=== PATIENT | male | born 1960 | race Caucasian/White ===

== ENCOUNTER 2016-05-24 19:10 | Emergency (ER) | payer OTHER ==
[~2016-05-24] VITALS: Ht 182.9 cm; Wt 90.9 kg
[~2016-05-24 19:10] MED LIST: AMLODIPINE BESY10 MG PO; ATENOLOL25 M1 NG; ATENOLOL50 MG PO; ATORVASTATIN CA20 MG PO; CLONIDINE HCL0.1 MG PO; DILAUDID2 MG PO; DIOVAN HCT 31 TABLE1 PO; DIOVAN40 MG PO; FLEXERIL10 MG PO; GLUCOPHAGE1000 MG PO; HYDROCODON-ACE1 EAC7 PO; K-DUR20 MEQ PO; LIDODERM 5% P1 PATCH TD; LIPITOR20 MG PO; LIPITOR5 MG PO; LYRICA200 MG PO; METFORMIN HCL1000 MG PO; MOBIC7.5 MG PO; NEURONTIN100 MG PO; NORCO 5/3251 TABLET PO; NORVASC10 MG PO; OMEPRAZOLE20 MG PO; OXYCODONE-ACET1 EACH PO; OXYCONTIN10 MG PO; PAROXETINE HCL40 MG PO; PAXIL40 MG PO; PERCOCET 10/1 TABLET PO; POTASSIUM CHLO20 ME1 PO; PREDNISONE10 MG PO; PREDNISONE20 MG PO; PRILOSEC20 MG PO; SYMBICORT60 INHALAT IH; TENORMIN50 MG PO; TORADOL10 MG PO; VALIUM2 MG PO; VALSARTAN-HCTZ1 EAC3 PO; VICODIN,LORT1 TABLET PO; ZETIA10 MG PO; diovan; prilosec; tenormin
[2016-05-24] MEDS ORDERED: PERCOCET 5/31 TABLET PO (21:01)
[2016-05-24] MEDS ORDERED: FLEXERIL10 MG PO (21:01)
[2016-05-24] MEDS ORDERED: PREDNISONE20 MG PO (21:01)
[2016-05-24 21:25] VITALS: BP 115/73
== END 2016-05-24 21:30 | disposition home or self-care (01) ==
LOC: EME 19:10
DX: M54.2 Cervicalgia (principal); G89.29 Other chronic pain; R51 Headache; E11.9 Type 2 diabetes mellitus without complications; E78.5 Hyperlipidemia, unspecified; I10 Essential (primary) hypertension; K21.9 Gastro-esophageal reflux disease without esophagitis; F17.210 Nicotine dependence, cigarettes, uncomplicated; Z79.84 Long term (current) use of oral hypoglycemic drugs
CPT/HCPCS: 99281; 99284; J1885; J7512

== ENCOUNTER 2016-07-01 15:11 | Observation (INO) | payer OTHER ==
[~2016-07-01] VITALS: Ht 182.9 cm; Wt 86.5 kg
[~2016-07-01 15:11] MED LIST changes: +PERCOCET 5/31 TABLET PO
[2016-07-01 15:58] LABS: BASOPHIL COUNT 0.1 K/uL (0-0.1); EOSINOPHIL (%) 2.6 % (0-5); EOSINOPHIL COUNT 0.3 K/uL (0-0.3); HEMATOCRIT 37.6 % (38.0-50.0); IMMATURE GRANULOCYTE (%) 1.1 % (0.0-0.7); IMMATURE GRANULOCYTE COUNT 0.1 K/uL; LYMPHOCYTE COUNT 5.2 K/uL (1.0-2.8); MCHC 34.8 G/DL (30.0-36.0); MCV 89.1 FL (86-99); MEAN PLAT.VOLUME 9.2 uM^3 (9.0-12.4); MONOCYTE (%) 9.1 % (3-12); MONOCYTE COUNT 1.1 K/uL (0-0.8); NEUTROPHIL (%) 42.5 % (45-76); PLATELET COUNT 341 K/uL (156-360); RBC DIS.WIDTH-CV 12.8 % (11.8-14.6); RBC DIS.WIDTH-SD 41.9 % (39-53); RED BLOOD COUNT 4.22 M/uL (4.00-5.50); WHITE BLOOD COUNT 11.8 K/uL (4.1-10.2)
[2016-07-01 16:10] LABS: CHLORIDE 108 mEq/L (99-109); POTASSIUM 3.1 mEq/L (3.7-5.4); SODIUM 145 mEq/L (136-147)
[2016-07-01 16:11] LABS: GLUCOSE 89 mg/dL (70-99)
[2016-07-01 16:13] LABS: ANION GAP 17 MEQ/L (2-14)
[2016-07-01 16:15] LABS: GFR ESTIMATE (CALCULATED) > 59 mL/min/
[2016-07-01 16:16] LABS: UREA NITROGEN (BUN) 12 mg/dL (9-23)
[2016-07-01 16:22] LABS: TROP-I INTERPRETATION NEGATIVE; TROPONIN-I < 0.01 ng/mL (0.0-0.30)
[2016-07-01 16:24] LABS: PROTHROMBIN TIME 10.3 (9.2-11.2); PTT 26.7 (25-32)
[2016-07-01] MEDS ORDERED: FLEXERIL10 MG PO (17:22)
[2016-07-01] MEDS ORDERED: GLUCOPHAGE1000 MG PO (17:23)
[2016-07-01] MEDS ORDERED: AUGMENTIN875 MG PO (17:24)
[2016-07-01] MEDS ORDERED: PHENERGAN DM SYR1 ML PO (17:27)
[2016-07-01] MEDS ORDERED: ATENOLOL50 MG PO (17:28)
[2016-07-01] MEDS ORDERED: RELAFEN750 MG PO (17:28)
[2016-07-01] MEDS ORDERED: CLONAZEPAM0.5 MG PO (17:28)
[2016-07-01] MEDS ORDERED: BUSPAR10 MG PO (17:28)
[2016-07-01] MEDS ORDERED: PROZAC20 MG PO (17:29)
[2016-07-01] MEDS ORDERED: NORVASC10 MG PO (17:29)
[2016-07-01] MEDS ORDERED: LIPITOR20 MG PO (17:29)
[2016-07-01] MEDS ORDERED: PRILOSEC20 MG PO (17:30)
[2016-07-01] MEDS ORDERED: DIOVAN HCT 31 TABLE1 PO (17:30)
[2016-07-01] MEDS ORDERED: IRON325 MG PO (17:31)
[2016-07-01] MEDS ORDERED: GLUCOSAMINE H1500 MG PO (17:31)
[2016-07-01] MEDS ORDERED: VITAMIN B122500 MCG PO (17:32)
[2016-07-01 18:15] VITALS: BP 119/68
[2016-07-01 21:21] LABS: POINT-OF-CARE METER ID UU14162513
[2016-07-02] VITALS: BP 124/72
[2016-07-02 04:00] VITALS: BP 133/69
[2016-07-02 04:53] LABS: INFLUENZA A VIRAL ANTIGEN NEGATIVE; INFLUENZA B VIRAL ANTIGEN NEGATIVE
[2016-07-02 05:43] LABS: MCH 30.4 PG (29.0-34.0); MCHC 33.9 G/DL (30.0-36.0); MCV 89.4 FL (86-99); MEAN PLAT.VOLUME 9.3 uM^3 (9.0-12.4); PLATELET COUNT 302 K/uL (156-360); RBC DIS.WIDTH-CV 12.8 % (11.8-14.6); RBC DIS.WIDTH-SD 41.7 % (39-53); RED BLOOD COUNT 3.69 M/uL (4.00-5.50); WHITE BLOOD COUNT 14.8 K/uL (4.1-10.2)
[2016-07-02 06:07] LABS: ANION GAP 13 MEQ/L (2-14); CHLORIDE 105 MEQ/L (99-109); GFR ESTIMATE (CALCULATED) > 59 mL/min/; SAMPLE HEMOLYSIS CHECK 2; SAMPLE ICTERIC CHECK 0; SAMPLE LIPEMIA CHECK 0; SODIUM 139 MEQ/L (136-147); UREA NITROGEN (BUN) 20 mg/dL (9-23)
[2016-07-02 06:09] LABS: GLUCOSE 197 mg/dL (70-99)
[2016-07-02 07:14] VITALS: BP 145/78
[2016-07-02 08:16] LABS: POINT-OF-CARE METER ID UU13113831
[2016-07-02] MEDS ORDERED: NICOTINE PATCH1 EAC2 TD (08:17)
[2016-07-02] MEDS ORDERED: AZITHROMYCIN500 M1 PO (08:17)
[2016-07-02] MEDS ORDERED: PREDNISONE10 MG PO (08:22)
== END 2016-07-02 09:46 | disposition home or self-care (01) ==
LOC: EME 15:11 → EDOF 16:56 → 5WEST 16:56 → EDOF 16:56 → 5WEST 18:07
PROVIDERS: Emergency Medicine; Hospitalist; Internal Medicine Pulmonary Disease
DX: J45.901 Unspecified asthma with (acute) exacerbation (principal); J20.9 Acute bronchitis, unspecified; E87.6 Hypokalemia; I10 Essential (primary) hypertension; E11.9 Type 2 diabetes mellitus without complications; E78.5 Hyperlipidemia, unspecified; M19.90 Unspecified osteoarthritis, unspecified site; K21.9 Gastro-esophageal reflux disease without esophagitis; F32.9 Major depressive disorder, single episode, unspecified; F41.9 Anxiety disorder, unspecified; F17.200 Nicotine dependence, unspecified, uncomplicated; G47.30 Sleep apnea, unspecified; Z91.19 Patient's noncompliance with other medical treatment and regimen
CPT/HCPCS: 71010; 80048; 82948; 83880; 84484; 84999; 85025; 85027; 85610; 85730; 87502; 93005; 94640; 94640 76; 94644; 99202; 99281; 99285; G0378; J1630; J1815; J2060; J2930

== ENCOUNTER 2016-08-28 07:29 | Day surgery (SDC) | payer OTHER ==
[~2016-08-28] VITALS: Ht 182.9 cm; Wt 86.2 kg
[~2016-08-28 07:29] MED LIST changes: +AUGMENTIN875 MG PO; +AZITHROMYCIN500 M1 PO; +BUSPAR10 MG PO; +BUSPAR30 MG PO; +CIALIS10 MG PO; +CLONAZEPAM0.5 MG PO; +GLUCOSAMINE H1500 MG PO; +IRON325 MG PO; +LO-DOSE ASPIRIN81 M2 PO; +MEMANTINE HCL5 MG PO; +NICOTINE PATCH1 EAC2 TD; +PHENERGAN DM SYR1 ML PO; +PROZAC20 MG PO; +RELAFEN750 MG PO; +REMERON30 M2 PO; +VITAMIN B122500 MCG PO
[2016-08-28 08:02] LABS: POINT-OF-CARE METER ID UU14174212
== END 2016-08-28 09:06 | disposition home or self-care (01) ==
LOC: PAIN 07:29 → SDC 08:00 → PAIN 08:00
PROVIDERS: Anesthesiology Pain Medicine
DX: G89.29 Other chronic pain (principal); M54.2 Cervicalgia; M62.830 Muscle spasm of back; M47.812 Spondylosis without myelopathy or radiculopathy, cervical region; I10 Essential (primary) hypertension; E78.5 Hyperlipidemia, unspecified; E11.9 Type 2 diabetes mellitus without complications; F41.9 Anxiety disorder, unspecified; J45.909 Unspecified asthma, uncomplicated; F17.210 Nicotine dependence, cigarettes, uncomplicated; K21.9 Gastro-esophageal reflux disease without esophagitis; Z79.84 Long term (current) use of oral hypoglycemic drugs; Z79.82 Long term (current) use of aspirin; Z79.899 Other long term (current) drug therapy
CPT/HCPCS: 82948; J1030; J1885; J2250; J3010; S0020

== ENCOUNTER 2016-12-27 09:53 | Day surgery (SDC) | payer OTHER ==
[~2016-12-27] VITALS: Ht 180.3 cm; Wt 83.9 kg
[~2016-12-27 09:53] MED LIST changes: +LO-DOSE ASPIRIN81 M1 PO; +OXYCODONE HCL10 MG PO; +PROAIR HFA8.5 GM IH; +REMERON15 M2 PO; -REMERON30 M2 PO
[2016-12-27 10:29] LABS: POINT-OF-CARE METER ID UU14174212
== END 2016-12-27 11:26 | disposition home or self-care (01) ==
LOC: PAIN 09:53 → SDC 10:30 → PAIN 10:30
PROVIDERS: Anesthesiology Pain Medicine
PROC: 01513ZZ Destruction of Cervical Nerve, Percutaneous Approach (ICD-10-PCS; principal; 2016-12-27)
DX: M47.812 Spondylosis without myelopathy or radiculopathy, cervical region (principal); G89.29 Other chronic pain; M54.2 Cervicalgia; F41.9 Anxiety disorder, unspecified; Z98.1 Arthrodesis status; M19.90 Unspecified osteoarthritis, unspecified site; F17.200 Nicotine dependence, unspecified, uncomplicated; E11.9 Type 2 diabetes mellitus without complications; Z79.84 Long term (current) use of oral hypoglycemic drugs; I10 Essential (primary) hypertension
CPT/HCPCS: 82948; J1030; J1885; J2250; J3010; S0020

== ENCOUNTER 2017-01-03 09:56 | Day surgery (SDC) | payer OTHER ==
[~2017-01-03] VITALS: Ht 180.3 cm; Wt 83.5 kg
[2017-01-03 10:26] LABS: POINT-OF-CARE METER ID UU14174212
== END 2017-01-03 11:43 | disposition home or self-care (01) ==
LOC: PAIN 09:56 → SDC 10:30 → PAIN 10:30
PROVIDERS: Anesthesiology Pain Medicine
DX: M47.812 Spondylosis without myelopathy or radiculopathy, cervical region (principal); M54.2 Cervicalgia; G89.29 Other chronic pain; M54.5 Low back pain; M62.830 Muscle spasm of back; I10 Essential (primary) hypertension; E11.9 Type 2 diabetes mellitus without complications; F41.8 Other specified anxiety disorders; K21.9 Gastro-esophageal reflux disease without esophagitis; E78.5 Hyperlipidemia, unspecified; J45.909 Unspecified asthma, uncomplicated; F17.210 Nicotine dependence, cigarettes, uncomplicated; Z79.82 Long term (current) use of aspirin; Z79.891 Long term (current) use of opiate analgesic
CPT/HCPCS: 82948; J1030; J2250; J3010; S0020

== ENCOUNTER 2017-07-26 18:58 | Emergency (ER) | payer OTHER ==
[~2017-07-26] VITALS: Ht 182.9 cm; Wt 79.0 kg
[2017-07-26 20:01] LABS: HEMATOCRIT 40.2 % (38.0-50.0); HEMOGLOBIN 14.2 G/DL (12.5-16.6); MCH 29.9 PG (29.0-34.0); MCHC 35.3 G/DL (30.0-36.0); MCV 84.6 FL (86-99); PLATELET COUNT 353 K/uL (156-360); RBC DIS.WIDTH-CV 13.1 % (11.8-14.6); RBC DIS.WIDTH-SD 39.8 % (39-53); RED BLOOD COUNT 4.75 M/uL (4.00-5.50); WHITE BLOOD COUNT 17.2 K/uL (4.1-10.2)
[2017-07-26 20:10] LABS: ALBUMIN 4.4 g/dL (3.2-4.8); CHLORIDE 106 mEq/L (99-109); POTASSIUM 3.5 mEq/L (3.7-5.4); SODIUM 143 mEq/L (136-147)
[2017-07-26 20:12] LABS: GLUCOSE 99 mg/dL (70-99)
[2017-07-26 20:16] LABS: ALKALINE PHOSPHATASE 105 IU/L (3-129); CREATININE 1.1 mg/dL (0.6-1.3); GFR ESTIMATE (CALCULATED) > 59 mL/min/ (58.99-99999)
[2017-07-26 20:17] LABS: UREA NITROGEN (BUN) 17 mg/dL (9-23)
[2017-07-26 20:18] LABS: AST (GOT) 19 IU/L (2-34)
[2017-07-26 20:19] LABS: ALT (GPT) 28 IU/L (3-49)
[2017-07-26 20:23] LABS: TROP-I INTERPRETATION NEGATIVE; TROPONIN-I < 0.01 ng/mL (0.0-0.30)
[2017-07-26 23:06] VITALS: BP 111/82
== END 2017-07-26 23:11 | disposition home or self-care (01) ==
LOC: EME 18:58
PROVIDERS: Nurse Practitioner Acute Care
DX: J45.909 Unspecified asthma, uncomplicated (principal); E78.5 Hyperlipidemia, unspecified; E11.9 Type 2 diabetes mellitus without complications; M54.9 Dorsalgia, unspecified; G89.29 Other chronic pain; F17.200 Nicotine dependence, unspecified, uncomplicated; Z79.84 Long term (current) use of oral hypoglycemic drugs; Z79.82 Long term (current) use of aspirin
CPT/HCPCS: 80053; 84484; 85027; 93005; 94640; 94640 76; 99281; 99285; J2930; Q0177